=== PATIENT | male | born 1985 | race Caucasian/White ===

== ENCOUNTER 2019-03-27 10:41 | Emergency (ER) | payer SELFPAY ==
--- NOTE | 2019-03-27 12:55 | UC ---
Back Pain HPI - HPI Summary HPI Summary: Patient is a 34-year-old male presenting with bilateral lower back pain 2 days began after he "lifted soil wrong" at work. Patient is unable to describe pain but states that it feels like the last time when he slipped disks 4 years ago. Denies difficulty ambulating. Denies incontinence or trouble going to the bathroom. He notes numbness down the left buttock and left medial thigh to groin. Denies tingling. Denies decreased range of motion and strength. Denies swelling and bruising. Patient has not tried anything for symptomatic relief. - History of Current Complaint Chief Complaint: UCBackPain Stated Complaint: BACK INJURY Hx Obtained From: Patient Onset/Duration: Sudden Onset Severity Initially: Mild Severity Currently: Mild Pain Intensity: 4 - Allergies/Home Medications Allergies/Adverse Reactions: Allergies Allergy/AdvReac Type Severity Reaction Status Date / Time amoxicillin Allergy Anaphylatic Verified 03/27/19 11:06 Shock Penicillins Allergy Anaphylatic Verified 03/27/19 11:06 Shock Home Medications: Home Medications NK [No Home Medications Reported] 03/27/19 [History Confirmed 03/27/19] PMH/Surg Hx/FS Hx/Imm Hx Previously Healthy: Yes - Surgical History Surgical History: None - Family History Known Family History: Positive: Unknown, Non-Contributory - Social History Alcohol Use: Weekly Substance Use Type: Marijuana Substance Use Comment - Amount & Last Used: monthly Smoking Status (MU): Heavy Every Day Tobacco Smoker Type: Cigarettes Review of Systems All Other Systems Reviewed And Are Negative: No Constitutional: Positive: Negative Respiratory: Positive: Negative Cardiovascular: Positive: Negative Gastrointestinal: Positive: Negative Genitourinary: Positive: Negative Motor: Positive: Negative. Negative: Decreased ROM, Weakness Musculoskeletal: Positive: Arthralgia, Myalgia Physical Exam Triage Information Reviewed: Yes Appearance: Well-Appearing, No Pain Distress, Well-Nourished Vital Signs: Initial Vital Signs Temp 98.6 F 03/27/19 11:03 Pulse 75 03/27/19 11:03 Resp 18 03/27/19 11:03 BP 136/70 03/27/19 11:03 Pulse Ox 97 03/27/19 11:03 Vital Signs Reviewed: Yes Eyes: Positive: Conjunctiva Clear ENT: Positive: Hearing grossly normal Neck: Positive: Supple Respiratory Exam: Normal Respiratory: Positive: Lungs clear, Normal breath sounds, No respiratory distress Cardiovascular Exam: Normal Cardiovascular: Positive: RRR Musculoskeletal Exam: Normal Musculoskeletal: Positive: Strength Intact, ROM Intact, No Edema, Other: - Patient ambulates well with normal gait. No tenderness to palpation of lower back. No midline tenderness Neurological: Positive: Alert Psychological: Positive: Age Appropriate Behavior Skin Exam: Normal - No erythema or ecchymosis Diagnostics - Radiology lumbarsacral xray Radiology Interpretation Completed By: Radiologist Summary of Radiographic Findings: IMPRESSION: MILD DEGENERATIVE DISC DISEASE. Back Pain Course/Dx - Course Course Of Treatment: Discussed degenerative disc disease with patient. Instructed to continue symptomatic treatment and follow-up with Dr. Hannon for Worker's Comp. Instructed to go to ED for worsening symptoms including pain, incontinence, or inability to walk. Patient voiced understanding and agreed with the treatment plan. - Differential Dx/Diagnosis Provider Diagnosis: Degenerative joint disease (DJD) of lumbar spine Discharge ED - Sign-Out/Discharge Documenting (check all that apply): Patient Departure All imaging exams completed and their final reports reviewed: No Studies - Discharge Plan Condition: Stable Disposition: HOME Patient Education Materials: Degenerative Disc Disease (ED) Forms: *Work Release Referrals: Lee Hannon MD [Medical Doctor] - As Soon As Possible Additional Instructions: As discussed, your xrays showed mild degenerative disc disease. Rest, ice and/or heat to help alleviate your pain. Follow up with the referral listed below for further evaluation and treatment. Go to the emergency if you experience severe pain, inability to walk, or incontinence. - Billing Disposition and Condition Condition: STABLE Disposition: Home
[2019-03-27 13:49] VITALS: BP 127/75
== END 2019-03-27 13:49 | disposition home or self-care (01) ==
LOC: UCEAST 10:41
DX: M47.896 Other spondylosis, lumbar region (principal); F17.210 Nicotine dependence, cigarettes, uncomplicated; Z88.0 Allergy status to penicillin
CPT/HCPCS: 72110; 99201; G0463